=== PATIENT | female | born 1970 | race American Indian/Alaskan Native ===

== ENCOUNTER 2017-10-01 07:20 | Day surgery (SDC) | payer BC ==
[~2017-10-01 07:20] MED LIST: DILAUDID ONE; MARCAINE-EPI 0.5%-1:200,000 INFILTRATI ONE; NACL 0.9% IR ONE; SUBLIMAZE ONE; XYLOCAINE 1% 20 mL IR ONE
[2017-10-01] MEDS ORDERED: DIPRIVAN 10 MG/ML IV ONE (07:21)
[2017-10-01] MEDS ORDERED: XYLOCAINE MPF 2% ONE (07:22)
[2017-10-01] MEDS ORDERED: XYLOCAINE 1% 20 mL ONE (07:29)
[2017-10-01] MEDS ORDERED: MARCAINE-EPI 0.5%-1:200,000 INFILTRATI ONE ×2 (07:29→08:28)
--- NOTE | 2017-10-01 07:32 | Anesthesia Consultation ---
Anesthesia Consult and Med Hx Date of service: 10/01/17 - Airway Anesthetic Teeth Evaluation: Good (missing #[id number]) ROM Head & Neck: Adequate Mental/Hyoid Distance: Adequate Mallampati Class: Class I Intubation Access Assessment: Good - Pulmonary Exam CTA: Yes - Cardiac Exam Cardiac Exam: RRR - Pre-Operative Health Status ASA Pre-Surgery Classification: ASA2 Proposed Anesthetic Plan: General - Pre-Anesthesia Comment Pre-Anesthesia Comments: Good functional status - Pulmonary Hx Sleep Apnea: Yes (MILD) - Cardiovascular System Hx Hypertension: Yes (IN THE PAST RESOLVED MEDS DC'D 3YRS AGO) - Central Nervous System Hx Psychiatric Problems: Yes - Gastrointestinal Hx Gastroesophageal Reflux Disease: Yes - Endocrine Hx Liver Disease: Yes (ELEVATED LIVER ENZYMES) - Hematic Hx Anemia: Yes (RECEIVED IRON INFUSIONS) - Other Systems Hx Alcohol Use: No Hx Substance Use: No Hx Cancer: No - Additional Comments Anesthesia Medical History Comments: No anesthetic complication
[2017-10-01] MEDS ORDERED: NACL BACTERIOSTATIC INFILTRATI ONE (07:50)
[2017-10-01] MEDS ORDERED: LACTATED RINGERS 1,000 ML ONE (07:50)
[2017-10-01] MEDS ORDERED: TRANSDERM-SCOP TD SCH (08:00)
[2017-10-01] MEDS ORDERED: NORCO PO PRN (08:00)
[2017-10-01] MEDS ORDERED: LOVENOX SUB-Q NR (08:00)
[2017-10-01] MEDS ORDERED: MORPHINE IV PRN (08:00)
[2017-10-01] MEDS ORDERED: REGLAN IV PRN (08:00)
[2017-10-01] MEDS ORDERED: MYLICON PO PRN (08:00)
[2017-10-01] MEDS ORDERED: APRESOLINE IV PRN (08:00)
[2017-10-01] MEDS ORDERED: ZOFRAN IV PRN (08:00)
[2017-10-01] MEDS ORDERED: LACTATED RINGERS 1,000 ML IV SCH (08:00)
[2017-10-01] MEDS ORDERED: DILAUDID IV PRN (08:00)
[2017-10-01] MEDS ORDERED: ANCEF/STERILE WATER 2 GM/20 ML 2 GM/20 ML SYRINGE IV NR (08:00)
[2017-10-01] MEDS ORDERED: ZEMURON IV ONE (08:03)
[2017-10-01] MEDS ORDERED: VERSED ONE (08:04)
[2017-10-01] MEDS ORDERED: ANCEF/STERILE WATER 2 GM/20 ML 2 GM/20 ML SYRINGE IV ONE (08:18)
[2017-10-01] MEDS ORDERED: NACL 0.9% IR ONE ×2 (08:28)
[2017-10-01] MEDS ORDERED: XYLOCAINE 1% 20 mL IR ONE (08:28)
[2017-10-01] MEDS ORDERED: ePHEDrine SULFATE ONE (08:50)
[2017-10-01] MEDS ORDERED: NEO SYNEPHRINE/NS Syringe(OR USE) IV ONE (08:57)
[2017-10-01] MEDS ORDERED: DECADRON ONE (09:03)
[2017-10-01] MEDS ORDERED: ZOFRAN ONE (09:16)
[2017-10-01] MEDS ORDERED: ROBINUL ONE ×2 (09:16)
[2017-10-01] MEDS ORDERED: NEOSTIGMINE ONE (09:16)
--- NOTE | 2017-10-01 10:30 | Post Anesthesia Evaluation ---
- Post Anesthesia Evaluation Patient Participated: Yes Airway Patent: Yes Stable Respiratory Function: Yes Nausea/Vomiting: No Temp > 96.8F: Yes Pain Manageable: Yes Adequeate Hydration: Yes Anesthesia Complications: No Block Receding Appropriately: Not Applicable Patient on Ventilator: No
--- NOTE | 2017-10-01 10:30 | Anesthesia Day of Surgery ---
Anesthesia Day of Surgery - Day of Surgery Patient Examined: Yes Patient H&P Reviewed: Yes Patient is NPO: Yes
[2017-10-01] MEDS ORDERED: FLAGYL 500 MG/100 ML 500 MG/100 ML BAG IV NR (12:00)
[2017-10-01 13:39] VITALS: BP 127/79
[2017-10-02] MEDS ORDERED: LOVENOX SUB-Q SCH (10:00)
== END 2017-10-01 07:21 | disposition home or self-care (01) ==
LOC: OR 07:20
PROVIDERS: ATTEND Specialist
DX: K43.0 Incisional hernia with obstruction, without gangrene (principal); G47.30 Sleep apnea, unspecified; I10 Essential (primary) hypertension; K21.9 Gastro-esophageal reflux disease without esophagitis; E66.01 Morbid (severe) obesity due to excess calories; Z90.710 Acquired absence of both cervix and uterus; Z90.49 Acquired absence of other specified parts of digestive tract; Z68.35 Body mass index [BMI] 35.0-35.9, adult
CPT/HCPCS: 49655; A4217; C1781; J0690; J1100; J1170; J1650; J2250; J2370; J2405; J2704; J2710; J3010; J7120